=== PATIENT | female | born 1990 | race American Indian/Alaskan Native ===

== ENCOUNTER 2017-02-14 14:37 | Emergency (ER) | payer SELFPAY ==
[2017-02-14 15:26] VITALS: BP 125/58
--- NOTE | 2017-02-14 16:01 | Emergency Department Report ---
ED Dysuria HPI - HPI Chief Complaint: Urogenital-Female Stated Complaint: BACTERIA VAG/YEAST INFECTION Time Seen by Provider: 02/14/17 15:55 Duration: 3 Days Severity: Mild Symptoms: Dysuria: No, Frequency: No, Suprapubic Pain: No, Flank Pain: No, Fever : No, Hematuria: No, Abdominal Pain: No, Previous UTI's: No Other History: CHRONIC BV ED Review of Systems ROS: Stated complaint: BACTERIA VAG/YEAST INFECTION Other details as noted in HPI Comment: All other systems reviewed and negative Genitourinary: discharge ([facility]- A/C BV) ED Past Medical Hx - Past Medical History Previous Medical History?: No Hx Hypertension: No Hx Congestive Heart Failure: No Hx Diabetes: No Hx Deep Vein Thrombosis: No Hx Renal Disease: No Hx Sickle Cell Disease: No Hx Seizures: No Hx Asthma: No Hx COPD: No Hx HIV: No - Surgical History Past Surgical History?: No - Social History Smoking Status: Never Smoker - Medications Home Medications: Home Medications Medication Instructions Recorded Confirmed Last Taken Type Fluconazole [Diflucan] 150 mg PO DAILY #1 tablet 02/14/17 Unknown Rx metroNIDAZOLE [Flagyl] 500 mg PO Q12HR #20 tab 02/14/17 Unknown Rx Dysuria Exam - Exam General: Vital signs noted. No distress. Alert and acting appropriately. Exam: Yes Moist Mucous Membranes, No CVA Tenderness, No Abdominal Tenderness, No Rigidity or Guarding ED Course Vital Signs 02/14/17 15:22 Temperature 98.5 F Pulse Rate 92 H Respiratory 18 Rate Blood Pressure 125/58 O2 Sat by Pulse 98 Oximetry - Reevaluation(s) Reevaluation #1: 02/14/17 16:33 TO ER W A/C BV VSS NAD NO FEVER NO ABD PAIN USUALLY USES FLAGYL REQUESTS DIFLUCAN ED Medical Decision Making - Medical Decision Making SEE NOTE - Differential Diagnosis A/C BV Critical care attestation.: If time is entered above; I have spent that time in minutes in the direct care of this critically ill patient, excluding procedure time. ED Disposition Clinical Impression: Bacterial vaginosis Disposition: DC-01 TO HOME OR SELFCARE Is pt being admited?: No Does the pt Need Aspirin: No Condition: Stable Instructions: Bacterial Vaginosis (ED) Prescriptions: Fluconazole [Diflucan] 150 mg PO DAILY #1 tablet metroNIDAZOLE [Flagyl] 500 mg PO Q12HR #20 tab Referrals: PRIMARY CAREMD [Primary Care Provider] - 3-5 Days ANTWON VIZCARRA MD [Staff Physician] - 3-5 Days Forms: STI Treatment and Prevention Time of Disposition: 15:59
[2017-02-14 16:57] LABS: Bilirubin,Urine NEG (Negative); Blood,Urine NEG (Negative); Ketones,Urine TR mg/dL (Negative); Leukocyte Esterase,Urine TR (Negative); Mucus,Urine 3+ /HPF; Nitrite,Urine NEG (Negative); Protein,Urine <15 mg/dL mg/dL (Negative)
== END 2017-02-14 16:56 | disposition home or self-care (01) ==
LOC: ED 14:37
DX: N76.0 Acute vaginitis (principal); B96.89 Other specified bacterial agents as the cause of diseases classified elsewhere
CPT/HCPCS: 81001; 81025; 99283